=== PATIENT | female | born 1980 | race Caucasian/White ===

== ENCOUNTER → 2018-10-14 | Outpatient (CLI) | payer MEDICAID, SELFPAY ==
[2018-10-14 11:12] VITALS: BMI 53.1
[2018-10-14 12:16] LABS: Absolute Lymphocyte Count 2.52 X10^3/ul (0.83-4.51); Absolute Neutrophil Count 7.6 X10^3/uL (2.0-7.7); Basophil# 0.02 X10^3/uL; Basophil% 0.2 % (0-1); Eosinophil# 0.34 X10^3/uL; Hematocrit 39.3 % (37-47); Hemoglobin 13.1 g/dl (12.0-15.0); Lymphocyte # 2.52 X10^3/ul (4.0); Lymphocyte % 22.3 % (19-41); Mean Corp Hgb Conc 33.3 g/gl (32-36); Mean Corpuscular Hgb 28.4 pg (27.0-32.0); Mean Corpuscular Volume 85.1 fL (81-99); Mean Platelet Vol. 9.2 fl (6.2-12.0); Monocyte% 7.1 % (0-10); Neutrophil # 7.57 X10^3/uL (2.7-7.7); Platelet Count 349 K/mm3 (150-450); RBC Distribution Width CV 14.1 % (11.6-14.6); RBC Distribution Width SD 43.7 fl (35.1-43.9); Red Blood Count 4.62 M/mm3 (4.2-5.4); White Blood Count 11.3 K/mm3 (4.4-11.0)
[2018-10-14 12:18] LABS: POSITIVE COUNT NO; POSITIVE DIFFERENTIAL NO; POSITIVE MORPHOLOGY NO
[2018-10-14 12:25] LABS: Thyroid Stim Hormone (TSH) 3.52 uIU/mL (0.358-3.74)
== END | disposition home or self-care (01) ==
LOC: PAVLAB 11:46
PROVIDERS: Family Provider Family Medicine; PCP Family Medicine; Referring Provider Obstetrics & Gynecology; Visit Provider Obstetrics & Gynecology
DX: N93.9 Abnormal uterine and vaginal bleeding, unspecified (principal)
CPT/HCPCS: 36415; 84443; 85025

== ENCOUNTER → 2018-10-14 | Outpatient (CLI) | payer MEDICAID, SELFPAY ==
[2018-10-14 11:12] VITALS: BMI 53.1
[2018-10-16 12:10] LABS: HPV APTIMA, High Risk Negative (Negative)
== END | disposition home or self-care (01) ==
LOC: LABSPEC 13:55
PROVIDERS: Family Provider Family Medicine; PCP Family Medicine; Referring Provider Obstetrics & Gynecology; Visit Provider Obstetrics & Gynecology
DX: Z12.4 Encounter for screening for malignant neoplasm of cervix (principal); N93.9 Abnormal uterine and vaginal bleeding, unspecified
CPT/HCPCS: 36415; 84443; 85025; 87624; 88175; G0145

== ENCOUNTER → 2018-10-16 | Outpatient (CLI) | payer MEDICAID, SELFPAY ==
[2018-10-14 11:12] VITALS: BMI 53.1
--- NOTE | 2018-10-16 12:52 | US_ITS ---
STUDY: ULTRASOUND OF THE FEMALE PELVIS - COMPLETE REASON FOR EXAM: Female, 38 years old. Right lower quadrant pain LMP: 10/10/2018 TECHNIQUE: Transabdominal and Transvaginal TECHNICAL QUALITY: Adequate. COMPARISON: None. FINDINGS: The uterus is anteverted and is in a midline position. The uterus measures 9.3 x 7.8 x 5.3 cm. Normal uterine cervix. The endometrium measures 6 mm in thickness, and is hyperechoic. There is no demonstrated endometrial mass. There is no demonstrated myometrial mass. I.U.D. - The patient does not have an I.U.D. The right ovary is visualized. The right ovary measures 2.8 x 2.1 x 2.2 cm. There is no right ovarian cyst or ovarian mass. There is no visualized right adnexal mass or complex lesion. There is normal arterial and normal venous vascularity. The left ovary is visualized. The left ovary measures 4.2 x 2.5 x 2.5 cm. There is no left ovarian cyst or ovarian mass. There is no visualized left adnexal mass or complex lesion. There is normal arterial and normal venous vascularity. There is no fluid in the cul-de-sac. The bladder is sonographically normal but incompletely distended Polycystic ovary disease: No. US/Transvaginal Non- IMPRESSION: No suspicious sonographic findings Electronically Signed: Dheeraj Palacios MD at 14:02 EDT , Service support ,
--- NOTE | 2018-10-16 12:52 | US_ITS ---
STUDY: ULTRASOUND OF THE FEMALE PELVIS - COMPLETE REASON FOR EXAM: Female, 38 years old. Right lower quadrant pain LMP: 10/10/2018 TECHNIQUE: Transabdominal and Transvaginal TECHNICAL QUALITY: Adequate. COMPARISON: None. FINDINGS: The uterus is anteverted and is in a midline position. The uterus measures 9.3 x 7.8 x 5.3 cm. Normal uterine cervix. The endometrium measures 6 mm in thickness, and is hyperechoic. There is no demonstrated endometrial mass. There is no demonstrated myometrial mass. I.U.D. - The patient does not have an I.U.D. The right ovary is visualized. The right ovary measures 2.8 x 2.1 x 2.2 cm. There is no right ovarian cyst or ovarian mass. There is no visualized right adnexal mass or complex lesion. There is normal arterial and normal venous vascularity. The left ovary is visualized. The left ovary measures 4.2 x 2.5 x 2.5 cm. There is no left ovarian cyst or ovarian mass. There is no visualized left adnexal mass or complex lesion. There is normal arterial and normal venous vascularity. There is no fluid in the cul-de-sac. The bladder is sonographically normal but incompletely distended Polycystic ovary disease: No. US/Pelvic (Non ) IMPRESSION: No suspicious sonographic findings Electronically Signed: Dheeraj Palacios MD at 14:02 EDT , Service support ,
== END | disposition home or self-care (01) ==
PROVIDERS: Family Provider Family Medicine; PCP Family Medicine; Referring Provider Obstetrics & Gynecology; Visit Provider Obstetrics & Gynecology
DX: N93.9 Abnormal uterine and vaginal bleeding, unspecified (principal)
CPT/HCPCS: 76830; 76856; 93976

== ENCOUNTER → 2021-04-25 | Outpatient (CLI) | payer OTHER, MEDICAID, SELFPAY ==
[2021-04-28 05:07] LABS: Chlamydia By Nucleic Acid AMP Negative (Negative)
[2021-04-28 12:56] LABS: Gonococcus By Nucleic Acid AMP Negative (Negative)
== END | disposition home or self-care (01) ==
LOC: LABSPEC 16:50
PROVIDERS: PCP Family Medicine; Referring Provider Nurse Practitioner Women's Health; Visit Provider Nurse Practitioner Women's Health
DX: N76.0 Acute vaginitis (principal); Z11.3 Encounter for screening for infections with a predominantly sexual mode of transmission
CPT/HCPCS: 87070; 87205; 87491; 87591

== ENCOUNTER → 2021-05-23 15:32 | Outpatient (CLI) | payer OTHER, MEDICAID, SELFPAY ==
--- NOTE | 2021-05-23 15:34 | US_ITS ---
INDICATION: pelvic pain EXAMINATION: Ultrasound US Pelvis Non OB Complete With Transvaginal Imaging TECHNIQUE: Transabdominal and transvaginal pelvic ultrasound was performed. Grayscale, spectral waveform, and color flow Doppler evaluation of the adnexa. COMPARISON: 10/16/2018 and 06/15/2017. FINDINGS: UTERUS: Anteverted. The uterus measures 2.4 x 7.1 x 5.3 cm. A circumscribed hyperechoic myometrial mass is visualized measuring 0.8 x 0.8 x 0.8 cm suggestive of a myometrial fibroid, a second ill-defined heterogeneous lesion is visualized measuring 2.4 x 2.4 x 2.5 cm demonstrating subtle vascularity noted could represent a degenerating fibroid.. The endometrial stripe measures 0.7 cm in AP diameter which is within normal limits. RIGHT OVARY: The right ovary measures 3.4 x 2.2 x 2.6 cm. Non-enlarged, a hyperechoic area is visualized along the periphery of the right ovary measuring 0.9 x 0.7 x 0.6 cm otherwise unremarkable echogenicity. There is normal arterial inflow and venous outflow present in the right ovary. LEFT OVARY: The left ovary measures 4.6 x 3.9 x 2.8, a complex cyst is visualized within the left ovary measuring 2.0 x 1.7 x 2.0 cm. Non-enlarged, normal echogenicity. There is normal arterial inflow and venous outflow present in the left ovary. FREE FLUID: None. US/Pelvic (Non ) IMPRESSION: 2 lesions visualized within the uterus measuring 0.8 and 2.5 cm could represent fibroids. 2.0 cm complex cyst visualized within the left ovary. 0.9 cm hyperechoic area visualized on the right ovary. Note is made that these were not visualized on prior study however the prior study was only performed transabdominal. Electronically Signed: Mac Guzman MD at 8:16 EST Tel , Service support ,
--- NOTE | 2021-05-23 15:34 | US_ITS ---
INDICATION: pelvic pain EXAMINATION: Ultrasound US Pelvis Non OB Complete With Transvaginal Imaging TECHNIQUE: Transabdominal and transvaginal pelvic ultrasound was performed. Grayscale, spectral waveform, and color flow Doppler evaluation of the adnexa. COMPARISON: 10/16/2018 and 06/15/2017. FINDINGS: UTERUS: Anteverted. The uterus measures 2.4 x 7.1 x 5.3 cm. A circumscribed hyperechoic myometrial mass is visualized measuring 0.8 x 0.8 x 0.8 cm suggestive of a myometrial fibroid, a second ill-defined heterogeneous lesion is visualized measuring 2.4 x 2.4 x 2.5 cm demonstrating subtle vascularity noted could represent a degenerating fibroid.. The endometrial stripe measures 0.7 cm in AP diameter which is within normal limits. RIGHT OVARY: The right ovary measures 3.4 x 2.2 x 2.6 cm. Non-enlarged, a hyperechoic area is visualized along the periphery of the right ovary measuring 0.9 x 0.7 x 0.6 cm otherwise unremarkable echogenicity. There is normal arterial inflow and venous outflow present in the right ovary. LEFT OVARY: The left ovary measures 4.6 x 3.9 x 2.8, a complex cyst is visualized within the left ovary measuring 2.0 x 1.7 x 2.0 cm. Non-enlarged, normal echogenicity. There is normal arterial inflow and venous outflow present in the left ovary. FREE FLUID: None. US/Transvaginal Non- IMPRESSION: 2 lesions visualized within the uterus measuring 0.8 and 2.5 cm could represent fibroids. 2.0 cm complex cyst visualized within the left ovary. 0.9 cm hyperechoic area visualized on the right ovary. Note is made that these were not visualized on prior study however the prior study was only performed transabdominal. Electronically Signed: Mac Guzman MD at 8:16 EST Tel , Service support ,
== END ==
PROVIDERS: PCP Family Medicine; Referring Provider Nurse Practitioner Women's Health; Visit Provider Nurse Practitioner Women's Health
DX: R10.2 Pelvic and perineal pain (principal)
CPT/HCPCS: 76830; 76856; 93976

== ENCOUNTER 2021-06-03 15:32 | Outpatient (CLI) | payer OTHER, MEDICAID, SELFPAY ==
[2021-06-03 16:37] LABS: NATERA MAILED SPECIMEN
== END 2021-06-03 23:59 | disposition short-term general hospital (02) ==
PROVIDERS: PCP Family Medicine; Referring Provider Nurse Practitioner Women's Health; Visit Provider Nurse Practitioner Women's Health
DX: Z13.89 Encounter for screening for other disorder (principal); Z80.3 Family history of malignant neoplasm of breast
CPT/HCPCS: 36415

== ENCOUNTER 2021-07-04 16:19 | Outpatient (CLI) | payer OTHER, MEDICAID, SELFPAY ==
[2021-07-04 16:57] LABS: Absolute Lymphocyte Count 3.06 X10^3/uL (0.83-4.51); Absolute Neutrophil Count 9.4 X10^3/uL (2.0-7.7); Basophil# 0.04 X10^3/uL; Basophil% 0.3 % (0-1); Eosinophil# 0.31 X10^3/uL; Eosinophils% 2.2 % (0-5); Hematocrit 40.5 % (37-47); Hemoglobin 13.9 g/dL (12.0-15.0); Lymphocyte # 3.06 X10^3/ul (0.83-4.51); Lymphocyte % 22.1 % (19-41); Mean Corp Hgb Conc 34.3 g/dL (32-36); Mean Corpuscular Hgb 30.5 pg (27.0-32.0); Mean Platelet Vol. 9.8 fl (6.2-12.0); Monocyte# 0.93 X10^3/uL; Monocyte% 6.7 % (0-10); NRBC Flagged by Analyzer 0 % (0-5); Neutrophil # 9.42 X10^3/uL (2.7-7.7); Neutrophil % 68.3 % (47-70); Platelet Count 336 K/mm3 (150-450); RBC Distribution Width CV 13.1 % (11.6-14.6); RBC Distribution Width SD 43.2 fl (35.1-43.9); Red Blood Count 4.55 M/mm3 (4.2-5.4); White Blood Count 13.8 K/mm3 (4.4-11.0)
[2021-07-04 17:45] LABS: Thyroid Stim Hormone (TSH) 2.47 uIU/mL (0.358-3.74)
== END 2021-07-04 23:59 | disposition home or self-care (01) ==
LOC: LABSPEC 16:22
PROVIDERS: PCP Family Medicine; Visit Provider Obstetrics & Gynecology
DX: N93.9 Abnormal uterine and vaginal bleeding, unspecified (principal)
CPT/HCPCS: 36415; 84443; 85025

== ENCOUNTER 2021-09-20 05:18 | Day surgery (SDC) | payer OTHER, MEDICAID, SELFPAY ==
[2021-09-14 16:21] LABS: Hematocrit 39.5 % (37-47); Hemoglobin 12.9 g/dL (12.0-15.0); Mean Corp Hgb Conc 32.7 g/dL (32-36); Mean Corpuscular Hgb 29.1 pg (27.0-32.0); Mean Platelet Vol. 9.6 fl (6.2-12.0); Platelet Count 348 K/mm3 (150-450); RBC Distribution Width CV 13.2 % (11.6-14.6); RBC Distribution Width SD 43.2 fl (35.1-43.9); Red Blood Count 4.44 M/mm3 (4.2-5.4); White Blood Count 12.5 K/mm3 (4.4-11.0)
[2021-09-14 17:10] LABS: Anion Gap 6 (5-15); BUN 16 mg/dL (7-18); BUN/Creat Ratio 19.4 RATIO (10-20); Calcium,Total 8.7 mg/dL (8.5-10.1); Chloride 108 mmol/L (98-107); Creatinine, Serum 0.82 mg/dL (0.55-1.02); EST Glomerular Filtration Rate 82 mL/min (>60); Est Glom Filt Rate - Afr Amer 99 mL/min (>60); Glucose 97 mg/dL (74-106); Magnesium 2.2 mg/dL (1.6-2.6); Potassium 3.8 mmol/L (3.5-5.1); Sodium Level 138 mmol/L (136-145)
--- NOTE | 2021-09-19 19:59 | PCM.HP.BLA ---
History and Physical Date of Admission: 09/20/21 MR#:[id number]:[id number]: GIANFRANCO PADILLA ROSERep #:[id number]:1980 Provider:Dr. Zoë Grullon, DOAge/Sex: 41/F Location[facility] [place]igned Intake Intake Visit Reasons: preop total robotic hysterectomy BS cysto poss. LO Allergies sulfamethoxazole [From Bactrim] Allergy (Verified 07/22/21 15:27) Other trimethoprim [From Bactrim] Allergy (Verified 07/22/21 15:27) Other meloxicam Adverse Reaction (Verified 07/22/21 15:27) Nausea PFSH Medical History Degenerative disc disease Depression Encounter for Essure implantation Endometriosis Gastroenteritis Surgical History Abnormal Pap smear of cervix delivery delivered H/O LEEP History of cholecystectomy Family History Father Thyroid cancer Grandmother Breast cancer Grandfather Cancer lung-smoker Uncle Myocardial infarction Unknown Breast cancer Ovarian cancer Social History current occupational status: employed current occupation: [employer] Smoking Status: Light Smoker (<10/day) alcohol intake: current details: social substance use type: does not use caffeine: Yes what type of physical activity do you participate in: walking seatbelt use: always do you feel safe at home: Yes additional social history: Single HPI preop total robotic hysterectomy BS cysto poss. LO Details: GIANFRANCO PADILLA is a 41 year old who presents for preop exam. Ultrasound 2 years ago showed a 9 cm uterus and recently 12 cm with multiple fibroids. (on degenerating) She has a h/o prior section proceeded by a vaginal delivery. She has also undergone an essure procedure for sterilization. She uses an IUD for heavy menses currently. She is now scheduled for a total robotic hyst with removal of right ovary due to persistent nodule on the right ovary. Pregancy History 2 Elective abortions Hx Para 2 Spontaneous abortions Hx # Term Pregnancies Ectopic pregnancies Hx # Pregnancies Multiple births # of living children Past Pregnancies Del. Date Name GA/Weeks Outcome Route Bth Weight Infant Gen Labor Lgth Anesthesia Del Locatn Provider FOB Unknown 2009 Alonso live - full term Unknown 2012 Juan Antonio live - full term ROS Const ROS Unobtainable: All systems reviewed & are unremarkable except as noted in H Resp Resp: Reports system reviewed and no additional complaints, except as documented; Denies cough GI GI: Reports as per HPI Psych Psych: Reports system reviewed and no additional complaints, except as documented Exam Const General: cooperative, healthy appearing, comfortable and no acute distress Resp Effort & Inspection: normal respiratory effort Skin General: no rashes or lesions noted Psych Appearance: grossly normal Speech and Movement: speech and movement normal Coding Level of Care Code Off vis,est,level 3 Diagnoses Family history of cancer Z80.9 Pelvic pain R10.2 Abnormal uterine bleeding N93.9 Assessment and Plan Assessment and Plan (1) Family history of cancer: Status: Acute Comment: breast thyroid ovarian. Empower negative (2) Pelvic pain: Status: Acute Comment: enlarged uterus 10 cm with small fibroids. uncontrolled with IUD. severe dysmenorrhea. discussed if refractory to therapy recommend hysterectomy. due to BMI, enlarged uterus, fibroids, previous cs recommend robotic TLH. suspect endometriosis. (3) Abnormal uterine bleeding: Status: Chronic Comment: small fibroids. bleeding controlled with liletta, still severe dysmenorrhea. Plan: After discussing the patient's diagnosis and treatment plan options, patient wishes to proceed with surgical management. I have discussed with the patient the risks, benefits, and alternatives of the procedure which include but are not limited to risks of anesthesia, bleeding, infection, possible damage to bowel, bladder, or surrounding vasculature which could lead to additional surgery to evaluate any complications. Patient agrees to procedure and wishes to proceed. ACOG/uptodate references given for additional information regarding procedure. plan for total robotic hysterectomy, RSO and cysto. consent signed UPDATE- I have seen the patient and performed any clinically relevant updates to the history and physical exam. Zoë Grullon DO
[2021-09-20] VITALS (7 sets, daily range): BP systolic 138–162; BP diastolic 84–89; PULSE 83–94; RESP 16–29; TEMP 36.3–36.6; O2SAT 90–100; BMI 49.9
--- NOTE | 2021-09-20 | HYST_PTH ---
PATIENT: GIANFRANCO PADILLA [place] [facility] [place][id number] AGE/SX: 41/F ROOM: RE09/20/[address]: Dr. Zoë Grullon DO : 1980 BED: DIS: 09/20/2021 SPEC #: [id number] RECD: 09/20/21 12:43 STATUS: NICOLE JACINTO #: [id number] ANEL: 09/20/21 00:[address]: Zoë Grullon DEPT: SURGICAL PATHOLOGY RECD BY: Brandon Beltrán ENTERED: 09/20/21 12:43 SP TYPE: HYSTERECT OTHR DR: Dr. Jose Alfredo Vela MD Tissues: Uterus, NOS Procedures: Surgery Specimen Level V HEADER OPERATION: ERAS, total robotic hysterectomy, right salpingo-oophorectomy PRE-OP DIAGNOSIS: Family history of cancer, pelvic pain, abnormal uterine bleeding TISSUE SUBMITTED: Cervix, right ovary, bilateral fallopian tubes, uterus MICROSCOPIC DIAGNOSIS Cervix, uterus, right fallopian tube and ovary and left fallopian tube, hysterectomy and right salpingo-oophorectomy and left salpingectomy: Cervix ? chronic cystic cervicitis. Endometrium ? exogenous hormone effect. Myometrium ? intramural leiomyomas (largest measuring 3 cm in diameter). See comment. - Focal adenomyosis. Bilateral fallopian tubes - no pathologic diagnosis. Right ovary ? physiologic follicular cysts. - Mesothelial inclusion cyst with focal calcification. Bilateral paratubal cysts. SJ:rg 09/21/2021 COMMENT A few of the leiomyomas show focal area of increased cellularity. MICROSCOPIC DESCRIPTION Slides are reviewed. GROSS DESCRIPTION Received in fixative is one container labeled with the patient's name and designated cervix, right ovary, bilateral fallopian tubes, uterus. The specimen consists of a hysterectomy specimen consisting of uterus with cervix, attached right fallopian tube and ovary and attached left fallopian tube. The uterus with cervix weighs 182 gm and measures 10.5 x 8 x 6 cm. The serosal surface is hawkins, glistening. The ectocervical mucosa is focally disrupted. The external os is oval in contour. The endocervical canal measures 3 cm in length and the endocervical mucosa is hawkins, glistening and unremarkable. Sections of the cervix reveal multiple cysts filled with mucoid material. The triangular endometrial cavity measures 5 cm in length and up to 4 cm in width. The endometrial cavity contains a well-positioned wide T-shaped intrauterine device. The horizontal arm measures 3 cm in length and vertical arm measures 3 cm in length. A two-prong blue suture is also present measuring 10 cm in length. The endometrium is hawkins, glistening without any mass lesion and measures 0.2 cm in thickness. Sections through the uterine wall reveal multiple nodular masses. The largest mass measures 3 cm in diameter. Sections of these masses reveal hawkins whorled cut surfaces without areas of hemorrhage, necrosis or cystic degeneration. The uninvolved uterine wall measures up to 3 cm in thickness. The right fallopian tube measures 8 cm in length and 0.6 cm in diameter. The fimbrial end is identified. No tubo-ovarian adhesions are noted. A paratubal cyst is noted measuring 1.5 cm in greatest dimension. It is filled with clear fluid. The soft to cystic right ovary measures 4 x 3 x 1.5 cm. Sections reveal multiple cysts filled with clear to hemorrhagic fluid. The largest cyst measures 1 cm in greatest dimension. A corpus luteum is also noted. The left fallopian tube is similar appearance to right and measures 8 cm in length and 0.5 cm in diameter. A paratubal cyst is also noted measuring 1.5 cm in greatest dimension. It is filled with clear fluid. Senior Fire Protection Engineer sections are submitted in 11 cassettes as follows: 1 - anterior cervix, 2 - posterior cervix, 3 & 4 - anterior uterine wall, 5 & 6 - posterior uterine wall, 7 - largest nodular mass, 8 - smaller nodular masses, 9 - right fallopian tube and paratubal cyst, 10 - right ovary, 11 - left fallopian tube and paratubal cyst. / SASHA:tyrone 09/20/2021 TC:3 CPT: 14114
[2021-09-20 06:02] LABS: Internal QC Validated? YES +Cl - CLEAR BKGD; Pregnancy, Urine Negative Negative
[2021-09-20] MEDS: Lactated Ringers 1,000 ML 40 ML IV (06:14)
[2021-09-20] MEDS: Acetaminophen 500 MG Tablet 1000 MG PO (06:15)
[2021-09-20] MEDS: Celecoxib 200 MG Capsule 400 MG PO (06:15)
--- NOTE | 2021-09-20 07:12 | PCM.DC ---
Discharge Instructions Diet Discharge Diet: No restrictions Activity May resume sexual activity in: 6 weeks Weight Bearing Status: Full weight bearing Dressing / Incision Call your doctor if your incision/area has: Continuous Slow Oozing, Sudden Increased Bleeding, Increased Pain/ Swelling, Increased Redness and Foul Smelling Discharge Call your doctor if you observe: Fever of 101 or Higher, Using more than 1 pad per hour, Shortness of breath, Chest pain and Uncontrolled pain Suture Line Care: Avoid Pulling/Pushing and Avoid Pinching/Bending Remove Dressing in: 1 week (if present) Cleanse incision/area with: Soap & Water and Keep Dressing Clean & Dry Follow Up Care Please Follow Up With: Zoë Grullon DO When: Call to make an appointment with your doctor for a postop visit in 2 and 6 weeks Test Results: Test results from this visit will be discussed in further detail at your follow-up appointment, if applicable. Discharge Plan Admission Primary Reason for Your Visit: robotic hysterectomy Attending Provider: Zoë Grullon Primary Care Provider: Jose Alfredo Vela Discharge Orders/Prescriptions Prescriptions: New ibuprofen 600 mg tablet 600 mg PO Q6H PRN (Reason: pain) 7 Days Qty: 28 RF: 0 oxycodone-acetaminophen [Percocet] 5-325 mg tablet 1 tab PO Q6H PRN (Reason: pain) 7 Days Qty: 30 RF: 0 Continued meclizine 25 mg tablet 25 mg PO DAILY PRN (Reason: Nausea) RF: 0 Liletta 20.1 mcg/24 hrs (6 yrs) 52 mg intrauterine device 1 device intrauterine ONCE RF: 0 pregabalin [Lyrica] 50 mg capsule 75 mg PO BID RF: 0 spironolactone [Aldactone] 100 mg tablet 100 mg PO DAILY RF: 0 bupropion HCl [Wellbutrin XL] 300 mg tablet extended release 24 hr 300 mg PO QAM RF: 0 folic acid 1 mg tablet 1 mg PO DAILY RF: 0 cholecalciferol (vitamin D3) 1,250 mcg (50,000 unit) capsule 1,250 mcg PO QWEEK RF: 0 doxycycline hyclate 100 mg capsule 100 mg PO DAILY PRN (Reason: infection) RF: 0 cyclobenzaprine 10 mg tablet 10 mg PO TID PRN (Reason: muscle spasm) Qty: 30 RF: 2 Referrals / Follow Up: Jose Alfredo Vela MD [Primary Care Provider] - Disposition Disposition (needs filled in before D/C Order can be placed): Home, Self Care
--- NOTE | 2021-09-20 09:16 | OP.PCM_ITS ---
Problems Associated Problem List Diagnoses (1) Abnormal uterine bleeding: (2) Pelvic pain: (3) Family history of cancer: Report of Operation Date of Procedure: 09/20/21 Pre-Operative Diagnosis: fibroid uterus and menorrhagia, failed conservative therapy Post-Operative Diagnosis: fibroid uterus and menorrhagia, failed conservative therapy Surgery/Procedure Performed:: Total robotic hysterectomy bilateral salpingectomy right oophorectomy Description of Surgical Findings:: On exploration of the abdominal cavity the uterus, adnexa, bowel, and liver were found to be normal. Cystoscopy showed no evidence of leaking at approximately 250 cc of normal saline, positive ureteral orifices and jet flow are seen and no suture material was appreciated in the bladder.Left ovarian cyst noted, approximately 2 cm. Right ovarian nodule approximately 1 cm, 12 cm fibroid uterus. Moderate adhesions from scar adhering bladder to uterus. Surgeon: Zoë Grullon business loan processor: Anny Floyd Type of Anesthesia: General Anesthesiologist: Rashid Garcia Specimen's removed: Bilateral fallopian tubes right ovary uterus and cervix Drains: None Estimated Blood Loss (mL): 80 cc Fluids Replaced: 1000 cc Description of Procedure: Reason for surgery: This is a 41-year-old G2, P2 who presented to my with history of heavy menstrual periods fibroid uterus failed conservative therapy and right ovarian nodule. The planned procedure is for a robotic hysterectomy the risks benefits and alternatives were discussed with the patient the patient had a clear understanding of the procedure and a consent form was signed. Procedure: The patient was placed in the dorsal low lithotomy position and prepped and draped in the normal sterile fashion both abdominally and in the perineum. Her legs were placed in stirrups a Roberts catheter was inserted into the urethra without difficulty. A weighted speculum was placed in the vagina and a single- tooth tenaculum was used to grasp the anterior lip of the cervix. A Zipariare uterine manipulator was inserted through the cervix without complication. It was then tied into place at the 2 and 10:00 locations on the cervix. Gloves were changed and attention was turned towards the abdomen. Approximately 25 cm above the pubic symphysis in the midline, and after Marcaine injection, a 8 mm incision was made. An 8 mm trocar was inserted through the laparoscope, then inserted into the abdomen under direct visualization using the laparoscope. Good abdominal placement was noted and no complications were appreciated. An air seal device was utilized to create pneumoperitoneum. At 12 cm lateral to the midline on the left and right sides 8 mm accessory ports were placed. Next a left upper quadrant 8 mm visitor information assistant port site was placed. The patient was placed in steep Trendelenburg position. The robot was docked. The hysterectomy was initiated first by taking down the round ligament on each side using the vessel sealer device. The peritoneum between the round ligament and the IP ligament on the right side was opened using electrocautery and extended the length of the IP ligament. The IP ligament was then taken down using the vessel sealer device. These areas were freed without complication the broad ligament was then and taken down using the vessel sealer device. Next the bladder flap was taken down without complication. This was done using monopolar cautery to the level of the cervical vaginal junction. On the right side, the mesosalpinx was cauterized and cut to the level of the uterus and the ovarian ligament was cauterized and cut, leaving behind the left ovary. After the bladder flap was created, uterine vessels were then isolated and cauterized using the vessel sealer device and EndoShears. At this point the uterine vessels were taken down further starting from the ascending branch, dissecting along the edges of the cervix to the level of the cervical vaginal junction with hemostasis appreciated. The cervical vaginal junction was then using monopolar cautery in a circumferential pattern across the superior aspect of the cervix. The specimen was delivered through the vagina and sent to pathology. The remaining vaginal cuff was then closed using V lock suture in 2 layters. This was performed in a running technique. Excellent hemostasis was obtained and good closure was noted. Irrigation was then performed. All operative sites were noted to be hemostatic. A cystoscopy was performed with a 70 degree cystoscope through the urethra into the bladder without complication. The bladder was instilled with approximately 250 cc of normal saline. Intraoperative images were made. Ureteral orifices and jets were identified. No suture material was appreciated in the bladder. The bladder was then drained and cystoscope was removed. The abdominal cavity was again examined using the laparoscope after the robot was undocked. All operative sites were noted to be hemostatic. The trochars were removed under direct visualization without complication and pneumoperitoneum was reduced. At this point the skin was then closed using 4-0 Monocryl subcuticular stitch and sealed with surgical glue. The patient tolerated the procedure well sponge lap and needle counts were correct x2 the patient was taken to the recovery room in stable condition. Complications none Admit VTE Documentation VTE Present on Admission: Yes VTE Mechan Device Prophylaxis: SCD's VTE Pharm Prophylaxis ordered?: No Reason prophylaxis not ordered:: Procedure Not Indicated Multi Select Codes Urinary/Genital Urinary/Genital CPT Codes: 95350 TLH+BS/O >250gr uterus
[2021-09-20] MEDS: Lactated Ringers 1,000 ML 15 ML IV (09:52)
[2021-09-21 05:56] LABS: Bedside Glucose 123 mg/dL (74-106)
== END 2021-09-20 11:04 | disposition home or self-care (01) ==
LOC: SDC 05:21 → AC 05:21
PROVIDERS: Anesthesiology; PCP Family Medicine; Referring Provider Obstetrics & Gynecology; Visit Provider Obstetrics & Gynecology
PROC: 0UT90ZZ Resection of Uterus, Open Approach (ICD-10-PCS; CPT 58571; principal; 2021-09-20 07:10)
DX: D25.1 Intramural leiomyoma of uterus (principal); N80.0 Endometriosis of uterus; N83.01 Follicular cyst of right ovary; F17.200 Nicotine dependence, unspecified, uncomplicated; Z80.9 Family history of malignant neoplasm, unspecified; F41.9 Anxiety disorder, unspecified; K21.9 Gastro-esophageal reflux disease without esophagitis; F32.A Depression, unspecified; Z79.899 Other long term (current) drug therapy; N92.0 Excessive and frequent menstruation with regular cycle
CPT/HCPCS: 58571; S2900; 00840; 36415; 80048; 81025; 82962; 83735; 85027; 86850; 86900; 86901; 88307; J7120; J2405; J3475

== ENCOUNTER 2021-10-13 10:23 | Emergency (ER) | payer OTHER, MEDICAID, SELFPAY ==
[2021-10-13 10:24] VITALS: BP 137/89; PULSE 99; RESP 16; TEMP 36.8; O2SAT 97; BMI 50.8
[2021-10-13 10:25] VITALS: BP 137/89; PULSE 99; RESP 16; TEMP 36.8; O2SAT 97
--- NOTE | 2021-10-13 11:19 | CT_ITS ---
STUDY: CT ABDOMEN AND PELVIS WITH CONTRAST REASON FOR EXAM: Female, 41 years old. HYSTERECTOMY 3 WKS AGO. Abdominal pain. RADIATION DOSAGE (If Supplied By Facility): CTDIvol = ( 31.43 ) mGy, DLP = ( 1907.95 ) mGycm TECHNIQUE: Transaxial images were obtained from the dome of the diaphragm to the symphysis pubis without oral contrast. IV 100mL Isovue-300 was administered. Sagittal and coronal images were reconstructed. Individualized dose optimization techniques were used for this CT. COMPARISON: Comparison is made with prior examination dated 06/15/2017. FINDINGS: The visualized lung bases are unremarkable. The visualized portions of the heart are within normal limits. Normal liver. There are surgical clips in the gallbladder fossa consistent with a prior cholecystectomy. Normal spleen. Normal pancreas. Normal bilateral adrenal glands. Normal right kidney. Normal left kidney. Normal visualized stomach. Normal small intestine. There are scattered colonic diverticula consistent with diverticulosis. The appendix is visualized and appears normal. Normal abdominal aorta. Normal inferior vena cava. Normal retroperitoneum. Normal urinary bladder. There is absence of the uterus consistent with a prior hysterectomy. There is a 5.1 cm x 5 cm well-defined cystic structure in in the left adnexal region. This may represent either a left ovarian cyst or postoperative seroma. Correlation with ultrasound is recommended. Normal abdominal wall. Grade 1 anterolisthesis of L4 on L5 with disc space narrowing. 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 CT/Abdomen/Pelvis W IV Cont ONLY IMPRESSION: 5.1 cm x 5 cm well-defined cystic structure in the left adnexal region. This may represent either a left ovarian cyst versus localized seroma with the patient''s history of a recent hysterectomy. Correlation with ultrasound is recommended. Electronically Signed: Jason Smith MD at 12:14 EDT ,
[2021-10-13 11:30] LABS: Absolute Lymphocyte Count 2.61 X10^3/uL (0.83-4.51); Absolute Neutrophil Count 7.1 X10^3/uL (2.0-7.7); Basophil# 0.02 X10^3/uL; Basophil% 0.2 % (0-1); Eosinophil# 0.41 X10^3/uL; Eosinophils% 3.8 % (0-5); Hemoglobin 13.4 g/dL (12.0-15.0); Lymphocyte # 2.61 X10^3/ul (0.83-4.51); Lymphocyte % 24.2 % (19-41); Mean Corp Hgb Conc 31.9 g/dL (32-36); Mean Corpuscular Hgb 29.4 pg (27.0-32.0); Mean Corpuscular Volume 92.1 fL (81-99); Mean Platelet Vol. 9.6 fl (6.2-12.0); Monocyte# 0.58 X10^3/uL; Monocyte% 5.4 % (0-10); NRBC Flagged by Analyzer 0 % (0-5); Neutrophil # 7.09 X10^3/uL (2.7-7.7); Neutrophil % 65.7 % (47-70); Platelet Count 338 K/mm3 (150-450); RBC Distribution Width CV 13.2 % (11.6-14.6); RBC Distribution Width SD 45.3 fl (35.1-43.9); Red Blood Count 4.56 M/mm3 (4.2-5.4); White Blood Count 10.8 K/mm3 (4.4-11.0)
[2021-10-13] MEDS: Morphine 4 MG/ML Syringe IV (11:30)
[2021-10-13] MEDS: Ondansetron 4 MG/2 ML Vial IV (11:30)
[2021-10-13 11:32] VITALS: BP 129/80; PULSE 87; RESP 18; TEMP 36.7; O2SAT 97
[2021-10-13 11:39] LABS: Mucous, Urine 0 SEEN /hpf (<or=2+)
[2021-10-13 11:41] LABS: Color, Urine Yellow (Yellow); Glucose, Dipstick Normal (Normal); Ketone-Dipstick Negative (Negative); Leukocyte Esterase-Dipstick 500 /ul (Negative); Nitrite-Dipstick Negative (Negative); Occult Blood-Urine 10 /ul (Negative); Protein-Dipstick 15 mg/dl (Negative); Specific Gravity, Urine 1.015 (1.002-1.030); Urine Bilirubin Dipstick Negative (Negative); Urine Clarity Sl. Cloudy (Clear); Urine Urobilinogen Normal (Normal)
[2021-10-13 11:46] LABS: ALB/GLOB Ratio 0.8 RATIO (0.9-2.4); AST(SGOT) 15 U/L (15-37); Alanine Aminotransfer ALT/SGPT 26 U/L (13-56); Albumin, Serum 3.3 g/dL (3.2-5.0); Alkaline Phosphatase 69 U/L (45-117); Anion Gap 8 (5-15); BUN 12 mg/dL (7-18); Calcium,Total 8.6 mg/dL (8.5-10.1); Chloride 107 mmol/L (98-107); Creatinine, Serum 0.75 mg/dL (0.55-1.02); EST Glomerular Filtration Rate 91 mL/min (>60); Est Glom Filt Rate - Afr Amer 111 mL/min (>60); Estimated Creatinine Clearance 97.93 ml/min; Glucose 94 mg/dL (74-106); Potassium 4.4 mmol/L (3.5-5.1); Protein, Total 7.3 g/dL (6.4-8.2); Sodium Level 142 mmol/L (136-145)
[2021-10-13 11:48] LABS: Red Blood Cells-Urine 0-5 SEEN /hpf (0-5)
[2021-10-13 11:49] LABS: Bacteria RARE /hpf (None Seen); Squamous Epithelial Cells - UA 5-10 SEEN /hpf (5-10); White Blood Cells 5-10 SEEN /hpf (0-5)
--- NOTE | 2021-10-13 11:59 | EDS_ITS ---
HPI HPI - GI History of Present Illness Chief Complaint: Abd Pain Narrative Narrative: 41-year-old female status post hysterectomy 09/18/2021 presenting with right lower abdominal pain. She states she initially did not have any pain but notes pain over the last 72 hours. She was seen outpatient by her chamber magistrate who sent her to the ER out of concern for possible appendicitis. Patient denies fever, chills, nausea, vomiting. She denies constipation or diarrhea. No urinary complaints. She has no vaginal discharge or spotting. [facility] Medical History Anxiety Back pain Degenerative disc disease Depression Encounter for Essure implantation Endometriosis Gastric reflux Gastroenteritis Hidradenitis Loose, teeth Smoker Wears glasses Home Medications meclizine 25 mg tablet 25 mg PO DAILY PRN 02/11/20 [History Last Taken Unknown] bupropion HCl 300 mg 24 hr tablet, extended release 300 mg PO QAM 04/25/21 [History Last Taken Unknown] cholecalciferol (vitamin D3) 1,250 mcg (50,000 unit) capsule 1,250 mcg PO QWEEK 04/25/21 [History Last Taken Unknown] doxycycline hyclate 100 mg capsule 100 mg PO DAILY PRN 04/25/21 [History Last Taken Unknown] folic acid 1 mg tablet 1 mg PO DAILY 04/25/21 [History Last Taken Unknown] pregabalin 50 mg capsule 75 mg PO BID cap 04/25/21 [History Last Taken Unknown] spironolactone 100 mg tablet 100 mg PO DAILY 05/30/21 [History Last Taken Unknown] cyclobenzaprine 10 mg tablet 10 mg PO TID PRN #30 tab 08/22/21 [Rx Last Taken Unknown] ibuprofen 800 mg tablet 800 mg PO Q8H PRN 10 Days #30 tab 10/05/21 [Rx Last Taken Unknown] metronidazole 500 mg tablet 500 mg PO BID 7 Days #14 tab 10/13/21 [Rx Last Taken Unknown] Allergy/AdvReac Type Severity Reaction Status Date / Time sulfamethoxazole Allergy Other Verified 10/13/21 10:26 [From Bactrim] trimethoprim [From Bactrim] Allergy Other Verified 10/13/21 10:26 meloxicam AdvReac Nausea Verified 10/13/21 10:26 Family History Father Thyroid cancer Grandmother Breast cancer Grandfather Cancer lung-smoker Uncle Myocardial infarction Unknown Breast cancer Ovarian cancer Surgical History Abnormal Pap smear of cervix delivery delivered H/O LEEP History of cholecystectomy Hx of section (~09/20/21) S/P total hysterectomy Social History current occupational status: employed current occupation: [employer] Smoking Status: Light Smoker (<10/day) alcohol intake: current details: social substance use type: does not use caffeine: Yes what type of physical activity do you participate in: walking seatbelt use: always do you feel safe at home: Yes additional social history: Single ROS ROS ED Constitutional Constitutional ED: Denies chills or fever(s) ENT ENT ED: Denies rhinorrhea or sore throat Cardiovascular Cardiovascular: Denies chest pain or palpitations Respiratory/Chest Respiratory/Chest: Denies cough or dyspnea Gastrointestinal Gastrointestinal: Reports abdominal pain; Denies constipation, diarrhea, nausea or vomiting Genitourinary Genitourinary ED: Denies dysuria Musculoskeletal Musculoskeletal: Denies arthralgias or myalgias Integumentary Denies rash Neurologic Neurologic: Denies headache(s), paresthesias or weakness Psychiatric Psychiatric: Denies anxiety or depression Endocrine Endocrinology: Denies polydipsia or polyuria EXAM Physical Exam Const Vital Signs: 10/13/21 10:24 10/13/21 10:25 10/13/21 11:32 Temperature 98.2 F 98.2 F 98.1 F Temperature Source Temporal Temporal Temporal Pulse Rate 99 99 87 Respiratory Rate 16 16 18 Blood Pressure 137/89 H 137/89 H 129/80 H Blood Pressure Mean 105 105 96 Pulse Ox 97 97 97 Oxygen Delivery Method Room Air Room Air Room Air 10/13/21 12:00 10/13/21 14:00 Temperature 97.6 F L Temperature Source Temporal Pulse Rate 84 76 Respiratory Rate 18 16 Blood Pressure 129/72 H 116/66 Blood Pressure Mean 91 82 Pulse Ox 97 97 Oxygen Delivery Method Room Air Room Air Positive obese General Appearance ED: NAD; Negative for pallor Nutritional Appearance: obese HEENT Reports moist mucous membranes normocephalic and atraumatic Eyes PERRL and EOMs intact bilaterally Resp normal respiratory effort and clear to auscultation bilaterally Cardio regular rate and regular rhythm GI non-distended Palpation: soft and tender RLQ Neuro Sensorium / Orientation: alert, oriented to person, oriented to place and oriented to time Psych mental status grossly normal and thought process normal Skin General Skin Exam: Negative for jaundice or pallor Lesions: no lesions Rashes: no rashes MDM MDM MDM Narrative Medical decision making narrative: Patient medicated with morphine and Zofran. Her CBC shows a white blood cell count of 10.8, hemoglobin 13.4, platelets 338. Renal function and electrolytes normal. LFTs within normal limits. Urinalysis not consistent with infection. CT of the abdomen pelvis with IV contrast is performed does not show any appendicitis and the appendix is visualized. There is either a left-sided ovarian cyst versus a seroma postoperatively. She is not have any pain here. Patient was discussed with Dr. Velasco who recommended outpatient follow-up. Patient states he has pain medication at home as needed. Impression: 1. Abdominal pain 2. Left-sided ovarian cyst versus seroma Lab Data Labs: Laboratory Results - last 24 hr 10/13/21 10/13/21 10/13/21 11:20 11:20 11:35 WBC 10.8 RBC 4.56 Hgb 13.4 Hct 42.0 MCV 92.1 MCH 29.4 MCHC 31.9 L RDW Std Deviation 45.3 H RDW Coeff of Caridad 13.2 Plt Count 338 MPV 9.6 Immature Gran % (Auto) 0.700 Neut % (Auto) 65.7 Lymph % (Auto) 24.2 Foard % (Auto) 5.4 Eos % (Auto) 3.8 Baso % (Auto) 0.2 Absolute Neuts (auto) 7.1 Absolute Lymphs (auto) 2.61 Nucleated RBC % 0 Sodium 142 Potassium 4.4 Chloride 107 Carbon Dioxide 27.0 Anion Gap 8 BUN 12 Creatinine 0.75 Estim Creat Clear Calc 97.93 Est GFR (MDRD) Af Amer 111 Est GFR (MDRD) Non-Af 91 BUN/Creatinine Ratio 16.0 Glucose 94 Calcium 8.6 Total Bilirubin 0.30 AST 15 ALT 26 Alkaline Phosphatase 69 Total Protein 7.3 Albumin 3.3 Globulin 4.0 Albumin/Globulin Ratio 0.8 L Urine Color Yellow Urine Clarity Sl. Cloudy Urine pH 6.0 Ur Specific Botkins 1.015 Urine Protein 15 H Urine Glucose (UA) Normal Urine Ketones Negative Urine Occult Blood 10 H Urine Nitrite Negative Urine Bilirubin Negative Urine Urobilinogen Normal Ur Leukocyte Esterase 500 H Urine RBC 0-5 SEEN Urine WBC 5-10 SEEN Ur Squamous Epith Cells 5-10 SEEN Urine Bacteria RARE Urine Mucus 0 SEEN Radiography Diagnostic Testing: Clinical Impression(s) from Imaging Studies Abdomen/Pelvis CT 10/13/21 11:19 IMPRESSION: 5.1 cm x 5 cm well-defined cystic structure in the left adnexal region. This may represent either a left ovarian cyst versus localized seroma with the patient''s history of a recent hysterectomy. Correlation with ultrasound is recommended. Electronically Signed: Jason Smith MD at 12:14 EDT , Discharge Plan Triage Chief Complaint: Abd Pain ED Provider: Kalia Reyes Dx/Rx/DC Orders Instructions: ED Ovarian Cyst, ED Post Op Wound Check, Pain Prescriptions: No Action meclizine 25 mg tablet 25 mg PO DAILY PRN (Reason: Nausea) RF: 0 pregabalin [Lyrica] 50 mg capsule 75 mg PO BID RF: 0 spironolactone [Aldactone] 100 mg tablet 100 mg PO DAILY RF: 0 bupropion HCl [Wellbutrin XL] 300 mg tablet extended release 24 hr 300 mg PO QAM RF: 0 folic acid 1 mg tablet 1 mg PO DAILY RF: 0 cholecalciferol (vitamin D3) 1,250 mcg (50,000 unit) capsule 1,250 mcg PO QWEEK RF: 0 doxycycline hyclate 100 mg capsule 100 mg PO DAILY PRN (Reason: infection) RF: 0 ibuprofen 800 mg tablet 800 mg PO Q8H PRN (Reason: pain) 10 Days Qty: 30 RF: 1 metronidazole 500 mg tablet 500 mg PO BID 7 Days Qty: 14 RF: 0 cyclobenzaprine 10 mg tablet 10 mg PO TID PRN (Reason: muscle spasm) Qty: 30 RF: 2 Primary Care Provider: Jose Alfredo Vela Referrals: Jose Alfredo Vela MD [Primary Care Provider] - Disposition Disposition: Home, Self Care
[2021-10-13 12:00] VITALS: BP 129/72; PULSE 84; RESP 18; TEMP 36.4; O2SAT 97
[2021-10-13 14:00] VITALS: BP 116/66; PULSE 76; RESP 16; O2SAT 97
[2021-10-13 15:10] VITALS: RESP 16
== END 2021-10-13 15:23 | disposition home or self-care (01) ==
PROVIDERS: Emergency Provider Student in an Organized Health Care Education/Training Program; PCP Family Medicine; Visit Provider Student in an Organized Health Care Education/Training Program
DX: R10.30 Lower abdominal pain, unspecified (principal); Z68.43 Body mass index [BMI] 50.0-59.9, adult; F17.200 Nicotine dependence, unspecified, uncomplicated; F41.9 Anxiety disorder, unspecified; F32.A Depression, unspecified; N80.9 Endometriosis, unspecified; Z87.19 Personal history of other diseases of the digestive system; Z79.899 Other long term (current) drug therapy; Z90.49 Acquired absence of other specified parts of digestive tract; E66.9 Obesity, unspecified
CPT/HCPCS: 74177; 80053; 81001; 85025; 96374; 96375; 99283; Q9967; A4216; J2405

== ENCOUNTER 2022-01-13 22:01 | Emergency (ER) | payer OTHER, MEDICAID, SELFPAY ==
[2022-01-13 22:02] VITALS: BP 151/93; PULSE 103; RESP 15; TEMP 36.5; O2SAT 97; BMI 47.1
--- NOTE | 2022-01-13 22:15 | RAD_ITS ---
INDICATION: Complains of left knee pain for 2 weeks EXAMINATION/TECHNIQUE: X-RAY - LEFT XR Knee 3 Views COMPARISON: None. FINDINGS: SOFT TISSUES: No significant soft tissue swelling. Small benign fabella posteriorly. BONES/JOINTS: No acute fracture or subluxation. Normal alignment. Preservation of the joint space(s). No suspicious osseous lesion observed. RAD/Knee 3 Views IMPRESSION: Left knee with no acute findings. Electronically Signed: Raul Larson MD at 23:32 EDT ,
--- NOTE | 2022-01-13 23:44 | EDS_ITS ---
HPI History of Present Illness Chief Complaint: Lower Extremity Injury Informant: patient Narrative Narrative: Patient is a 41-year-old female with history of chronic neck pain as well as right knee pain presenting with left knee pain. Patient states its been bot uvaldo for the past 2 weeks. She states the day before it started she felt a pop in her knee but denies any associated injury. Since then she has been having more pain in her knee. She describes as sharp and burning. It is diffusely in her knee but also behind her knee and the pain radiates up her inner thigh. She denies any associated chest pain, shortness of breath or difficulty breathing. Denies any history of DVT or PE. States she only came in today at the insistence of her significant other. No associated numbness or tingling. No other complaints at this time. [facility] Medical History Anxiety Back pain Degenerative disc disease Depression Encounter for Essure implantation Endometriosis Gastric reflux Gastroenteritis Hidradenitis Loose, teeth Smoker Wears glasses Home Medications meclizine 25 mg tablet 25 mg PO DAILY PRN Nausea 02/11/20 [History Last Taken Unknown] bupropion HCl 300 mg 24 hr tablet, extended release (Wellbutrin XL) 300 mg PO QAM 04/25/21 [History Last Taken Unknown] cholecalciferol (vitamin D3) 1,250 mcg (50,000 unit) capsule 1,250 mcg PO QWEEK 04/25/21 [History Last Taken Unknown] doxycycline hyclate 100 mg capsule 100 mg PO DAILY PRN infection 04/25/21 [History Last Taken Unknown] folic acid 1 mg tablet 1 mg PO DAILY 04/25/21 [History Last Taken Unknown] pregabalin 50 mg capsule (Lyrica) 75 mg PO BID 04/25/21 [History Last Taken Unknown] spironolactone 100 mg tablet (Aldactone) 100 mg PO DAILY 05/30/21 [History Last Taken Unknown] cyclobenzaprine 10 mg tablet 10 mg PO TID PRN muscle spasm #30 tabs 08/22/21 [Rx Last Taken Unknown] ibuprofen 800 mg tablet 800 mg PO Q8H PRN pain 10 days #30 tabs 10/05/21 [Rx Last Taken Unknown] gabapentin 300 mg capsule (Neurontin) 300 mg PO QHS #30 caps 11/02/21 [Rx Last Taken Unknown] Allergy/AdvReac Type Severity Reaction Status Date / Time sulfamethoxazole Allergy Other Verified 01/13/22 22:05 [From Bactrim] trimethoprim [From Bactrim] Allergy Other Verified 01/13/22 22:05 meloxicam AdvReac Nausea Verified 01/13/22 22:05 Family History Father Thyroid cancer Grandmother Breast cancer Grandfather Cancer lung-smoker Uncle Myocardial infarction Unknown Breast cancer Ovarian cancer Surgical History Abnormal Pap smear of cervix delivery delivered H/O LEEP History of cholecystectomy Hx of section (~09/20/21) S/P total hysterectomy Social History current occupational status: employed current occupation: [employer] Smoking Status: Light Smoker (<10/day) alcohol intake: current details: social substance use type: does not use caffeine: Yes what type of physical activity do you participate in: walking seatbelt use: always do you feel safe at home: Yes additional social history: Single ROS ROS ED Constitutional Constitutional ED: Denies chills or fever(s) Eyes Eyes: Denies change in vision Cardiovascular Cardiovascular: Denies chest pain or palpitations Respiratory/Chest Respiratory/Chest: Denies cough or dyspnea Gastrointestinal Gastrointestinal: Denies abdominal pain or nausea Musculoskeletal Musculoskeletal: Reports other Details: Left knee pain ; Denies arthralgias or back pain Integumentary Denies rash Neurologic Neurologic: Denies paresthesias or weakness Psychiatric Psychiatric: Denies anxiety Hematologic/Lymphatic Hematologic/Lymphatic: Denies easy bleeding or easy bruising EXAM Physical Exam Const Vital Signs: 01/13/22 22:02 Temperature 97.7 F L Temperature Source Temporal Pulse Rate 103 H Respiratory Rate 15 Blood Pressure 151/93 H Blood Pressure Mean 112 Pulse Ox 97 Oxygen Delivery Method Room Air Positive well nourished, well developed and obese General Appearance ED: well developed and NAD Nutritional Appearance: obese HEENT Reports moist mucous membranes Neck supple Resp normal respiratory effort and clear to auscultation bilaterally Cardio regular rate and regular rhythm Cardio Narrative: 2+ DP pulses GI non-distended and no masses Extremity Extremity Narrative: Decreased range of motion of the left knee secondary to pain. Tenderness of the posterior aspect of the knee with some associated swelling as well as pain with medial stress of the knee. Is able to lift a straight leg off the bed. Patella appears to be in appropriate position. No significant joint effusion appreciated. Neuro oriented x3, moves all extremities and no sensory deficits noted Psych mental status grossly normal Skin no wounds MDM MDM MDM Narrative Medical decision making narrative: Patient evaluated for atraumatic left knee pain. Physical exam is remarkable for pain on medial stress of the knee and posterior knee pain. Compartments are soft and there is no palpable cords. Low suspicion for DVT. I suspect the pain is either from her meniscus or osteoarthritis. Could also be a Claros's cyst. I do not have ultrasound available at this time. Patient is given a dose of oxycodone for her pain in the ER. She is given Ronnie wrap. Is discharged to follow-up with orthopedics. She will continue to alternate ibuprofen and Tylenol. 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 Encouraged to elevate, wrap and ice. Patient states she will follow- up with orthopedics on Sunday. Counseled return precautions. Patient is neurovascularly intact. Radiography Diagnostic Testing: Clinical Impression(s) from Imaging Studies Knee X-Ray 01/13/22 22:15 IMPRESSION: Left knee with no acute findings. Electronically Signed: Raul Larson MD at 23:32 EDT , Discharge Plan Triage Chief Complaint: Lower Extremity Injury ED Provider: Jacey Michaud Dx/Rx/DC Orders Clinical Impression: Acute pain of left knee, Swelling of joint of left knee Instructions: ED Knee Pain of Uncertain Cause Prescriptions: No Action meclizine 25 mg tablet 25 mg PO DAILY PRN (Reason: Nausea) pregabalin [Lyrica] 50 mg capsule 75 mg PO BID spironolactone [Aldactone] 100 mg tablet 100 mg PO DAILY bupropion HCl [Wellbutrin XL] 300 mg tablet extended release 24 hr 300 mg PO QAM folic acid 1 mg tablet 1 mg PO DAILY cholecalciferol (vitamin D3) 1,250 mcg (50,000 unit) capsule 1,250 mcg PO QWEEK doxycycline hyclate 100 mg capsule 100 mg PO DAILY PRN (Reason: infection) ibuprofen 800 mg tablet 800 mg PO Q8H PRN (Reason: pain) 10 Days Qty: 30 1RF gabapentin [Neurontin] 300 mg capsule 300 mg PO QHS Qty: 30 12RF cyclobenzaprine 10 mg tablet 10 mg PO TID PRN (Reason: muscle spasm) Qty: 30 2RF Primary Care Provider: Jose Alfredo Vela Referrals: John Paul Eid MD [Med Staff - Active Staff] - As soon as possible Jose Alfredo Vela MD [Primary Care Provider] - Disposition Disposition: Home, Self Care
[2022-01-13] MEDS: oxyCODONE 5 MG Tablet PO (23:50)
[2022-01-13 23:52] VITALS: BP 147/74; PULSE 93; RESP 18; O2SAT 97
== END 2022-01-14 00:10 | disposition home or self-care (01) ==
PROVIDERS: Emergency Provider Emergency Medicine; PCP Family Medicine; Visit Provider Emergency Medicine
DX: M25.562 Pain in left knee (principal); Z68.42 Body mass index [BMI] 45.0-49.9, adult; F17.200 Nicotine dependence, unspecified, uncomplicated; M25.462 Effusion, left knee; F41.9 Anxiety disorder, unspecified; F32.A Depression, unspecified; K21.9 Gastro-esophageal reflux disease without esophagitis; Z87.19 Personal history of other diseases of the digestive system; Z79.899 Other long term (current) drug therapy; G89.29 Other chronic pain; E66.9 Obesity, unspecified
CPT/HCPCS: 73562; 99283